=== PATIENT | female | born 1955 | race Caucasian/White ===

== ENCOUNTER 2022-04-08 08:17 | Outpatient (CLI) | payer MEDICARE, SELFPAY ==
[2022-04-08 15:19] LABS: Albumin* 4.9 g/dL (3.3-5.0)
[2022-04-08 15:20] LABS: Chloride* 104 mmol/L (96-114); Potassium* 5.6 mmol/L (3.6-5.1); Sodium* 142 mmol/L (135-149)
[2022-04-08 15:22] LABS: Alkaline Phosphatase* 92 U/L (40-150); Aspartate Amino Transferase* 43 U/L (12-35); Bilirubin Total* 0.5 mg/dL (0.1-1.5); Blood Urea Nitrogen* 28 mg/dL (7-30); Carbon Dioxide* 30 mmol/L (20-32); Cholesterol* 140 mg/dL (90-199); Creatinine* 1.1 mg/dL (0.5-1.5); Estimated Glomerular Filt Rate 56 ml/min; Total Protein* 7.8 g/dL (6.0-8.3)
[2022-04-08 15:23] LABS: Alanine Aminotransferase* 47 U/L (4-35); Calcium* 10.4 mg/dL (8.4-10.6); Glucose* 102 mg/dL (60-115); HDL Cholesterol* 47 mg/dL (>=50); LDL Cholesterol Calculated 61 mg/dL (<100); Triglycerides* 159 mg/dL (40-149)
[2022-04-08 15:54] LABS: Vitamin D 25 Hydroxy* 70 ng/mL (30-80)
== END 2022-04-08 08:18 | disposition home or self-care (01) ==
PROVIDERS: PCP Physician Assistant Medical; Visit Provider Family Medicine
DX: Z00.00 Encounter for general adult medical examination without abnormal findings (principal); E55.9 Vitamin D deficiency, unspecified; E78.1 Pure hyperglyceridemia; E78.5 Hyperlipidemia, unspecified
CPT/HCPCS: 80053; 80061; 82306

== ENCOUNTER 2022-05-11 11:49 | Outpatient (CLI) | payer MEDICARE, SELFPAY | END 2022-05-11 11:50 | disposition home or self-care (01) | LOC: OP CLINIC 11:50 | PROVIDERS: PCP Physician Assistant Medical; Visit Provider Surgery | DX: Z12.11 Encounter for screening for malignant neoplasm of colon (principal) | CPT/HCPCS: 45378; 99153; J2250; J3010 ==

== ENCOUNTER 2022-07-08 14:38 | Outpatient (CLI) | payer MEDICARE, SELFPAY ==
--- NOTE | 2022-07-08 15:00 | CRLHL7_ITS ---
For Patients: As a result of the Century Cures Act, medical imaging exams and procedure reports are released immediately into your electronic medical record. You may view this report before your referring provider. If you have questions, please contact your health care provider. BILATERAL SCREENING MAMMOGRAM WITH COMPUTER-AIDED DETECTION AND TOMOSYNTHESIS TECHNIQUE: CC and MLO views were obtained. These mammographic images have been obtained using full-field digital technique. These mammographic images were interpreted with the benefit of computer-aided detection. Breast Tomosynthesis was used in this interpretation. COMPARISON FILM: None (previous 10+ years). FINDINGS: There are scattered areas of fibroglandular density IMPRESSION: There is no radiographic evidence for malignancy. ASSESSMENT: BI-RADS Category 2: Benign RECOMMENDATION: Routine screening mammogram in 1 year. A lay language report of this examination will be provided to the patient. Francisco Cooley M.D. Diagnostic Radiologist [email or web address] MARITZA/Dictated by: Farncisco Cooley MD @ 07/09/2022 12:39:00 PM (Electronically Signed)
--- NOTE | 2022-07-08 15:30 | CRLHL7_ITS ---
For Patients: As a result of the Century Cures Act, medical imaging exams and procedure reports are released immediately into your electronic medical record. You may view this report before your referring provider. If you have questions, please contact your health care provider. DXA BONE MINERAL DENSITY STUDY Reason for exam: Vitamin d deficiency. Current height (in): 62.0. Weight (lb): 140. Menopause age: 41. Ethnicity: White. 1. Have you had a previous hip or vertebral fracture? No. 2. Have you had any fractures during your adult life which did not result from significant trauma (e.g., auto accident)? No. 3. Did either of your parents have a hip fracture? No. 4. Do you smoke? No. 5. Have you ever taken Glucocorticoids? No. 6. Do you have rheumatoid arthritis? No. 7. Do you have secondary osteoporosis? No. 8. Do you drink 3 or more alcoholic drinks per day? No. 9. Are you being treated for osteoporosis? No. 10. Have you ever taken any of the following medications: Actonel, Evista, Fosamax, Miacalcin, Reclast, Boniva, Forteo, HRT (i.e. estrogen/hormone therapy), Protelos, Prolia, Vitamin D, Calcium, other ??? please specify. ANSWER: Yes, vitamin D, calcium. 11. Do you have any of the following medical conditions: Anorexia or bulimia, asthma or emphysema, end stage renal disease, hyperparathyroidism, any seizure disorders, cancer, inflammatory bowel diseases, hysterectomy, other ??? please specify. ANSWER: Yes, inflammatory bowel diseases, hysterectomy. 12. What was your maximum height (inches)? 62. 13. Do you perform weight bearing exercise regularly? Yes. 14. Do you regularly consume dairy products? No. 15. Do you drink caffeinated beverages? No. If female: 16. At what age did your period start? 14. 17. Are you premenopausal? No. 18. How many full term pregnancies have you had? 2. 19. Have you ever missed your period for more than 6 months in a row (not including or menopause)? No. TECHNIQUE: Bone mineral density study was performed using the [employer]. FINDINGS: The results of the study expressed as bone mineral density (BMD) are as follows: Lumbar spine L1 to L2: BMD: 0.827 g/cm2. T-score: -2.1. Z-score: -0.3. Neck Left: BMD: 0.563 g/cm2. T-score: -2.6. Z-score: -1.0. Right: BMD: 0.623 g/cm2. T-score: -2.0. Z-score: -0.5. Total Left: BMD: 0.776 g/cm2. T-score: -1.4. Z-score: -0.1. Right: BMD: 0.821 g/cm2. T-score: -1.0. Z-score: 0.3. IMPRESSION: Osteoporosis. *Comparison exams done prior to 10/2019 were performed on different unit, [employer]. Francisco Cooley M.D. Diagnostic Radiologist [email or web address] (Electronically Signed)
== END 2022-07-08 14:39 | disposition home or self-care (01) ==
PROVIDERS: PCP Family Medicine; Visit Provider Family Medicine
DX: Z12.31 Encounter for screening mammogram for malignant neoplasm of breast (principal); E55.9 Vitamin D deficiency, unspecified; M81.0 Age-related osteoporosis without current pathological fracture
CPT/HCPCS: 77063; 77067; 77080

== ENCOUNTER 2023-05-04 08:17 | Outpatient (CLI) | payer MEDICARE, SELFPAY | END 2023-05-04 08:18 | disposition home or self-care (01) | PROVIDERS: PCP Family Medicine; Visit Provider Family Medicine | DX: E78.5 Hyperlipidemia, unspecified (principal); E55.9 Vitamin D deficiency, unspecified; M81.0 Age-related osteoporosis without current pathological fracture; M45.7 Ankylosing spondylitis of lumbosacral region; I67.9 Cerebrovascular disease, unspecified; I49.3 Ventricular premature depolarization | CPT/HCPCS: 80053; 80061; 82306 ==

== ENCOUNTER 2023-07-25 14:45 | Outpatient (CLI) | payer MEDICARE, SELFPAY ==
--- NOTE | 2023-07-25 15:00 | MM_ITS ---
Patient: ARY EMERSON Facility:?[facility] Patient ID:?[id number] Site Patient ID:?[id number]. Site :?[id number] Study:?XRay-Breast Bilateral 3D W/CAD-07/25/2023 3:10:24 PM Ordering Physician:Jessica Graves Final Report: BILATERAL SCREENING MAMMOGRAM WITH COMPUTER-AIDED DETECTION AND TOMOSYNTHESIS TECHNIQUE: CC and MLO views were obtained. These mammographic images have been obtained using full-field digital technique. These mammographic images were interpreted with the benefit of computer-aided detection. Breast tomosynthesis was used in this interpretation. COMPARISON FILM: 07/08/22. FINDINGS: The breasts are heterogeneously dense, which may obscure small masses. IMPRESSION: There is no radiographic evidence for malignancy. ASSESSMENT: BI-RADS Category 1: Negative RECOMMENDATION: Routine screening mammogram in 1 year. A lay language report of this examination will be provided to the patient. MAURY CONLEY M.D. Diagnostic Radiologist [email or web address] TIMI/paula D& Transcribed: 6:[address]/Dictated by: Maury Conley MD @ 08/04/2023 12:07:00 PM Signed by:?Maury Conley MD @08/04/2023 8:24:26 PM (Electronic Signature)
== END 2023-07-25 14:46 | disposition home or self-care (01) ==
LOC: MAMMO 14:46
PROVIDERS: PCP Family Medicine; Visit Provider Family Medicine
DX: Z12.31 Encounter for screening mammogram for malignant neoplasm of breast (principal); R92.2 Inconclusive mammogram
CPT/HCPCS: 77063; 77067

== ENCOUNTER 2023-08-29 07:41 | Outpatient (CLI) | payer MEDICARE, SELFPAY ==
--- OUTSIDE RECORDS SUMMARY | 2023-08-29 07:44 | XMS_ITS | Continuity of Care Document ---
Author Name Unknown Organization [facility] Address [address] [place] [address] Phone Care Team Providers Care Freight Delivery Driver Name Role Phone Christian Tse MD Unavailable Unavailable Allergies, Adverse Reactions, Alerts Substance Reaction Status Criticality NITROFURANTOIN MACROCRYSTALLINE difficulty breathing A ctive No Information nitrofurantoin difficulty breathing Active No In formation aspirin difficulty breathing Active No Info rmation Medications Medication Instructions Dosage Effective Dates (start - stop) Status Comments Mobic 15 mg tablet take 1 tablet (15MG) by oral route every day - Active tramadol 50 mg tablet take 1 - 2 Tablet by oral route 3 times every day as needed as needed 50 MG - Active Chronic pain clopidogrel 75 mg tablet take 1 tablet by oral route every day 75 MG - Active amitriptyline 25 mg tablet take 1 tablet by oral route every bedtime 1 tablet - Active atenolol 25 mg tablet take 1 tablet in the am and 1/2 tablet in the PM - Active Mobic 15 mg tablet take 1 tablet (15MG) by oral route every day - No Longer Active Procedures Procedure Date Office/Outpatient Visit, Est Routine Venipuncture Assay Of Serum Albumin Assay Of Creatinine Transferase (Ast) (Sgot) Alanine Amino (Alt) (Sgpt) CReactive Protein Complete Cbc WAuto Diff Wbc Office/Outpatient Visit, Est Routine Venipuncture Complete Cbc WAuto Diff Wbc Assay Of Creatinine Assay Alkaline Phosphatase Transferase (Ast) (Sgot) Alanine Amino (Alt) (Sgpt) Assay Of Urea Nitrogen Assay Of Blood/Uric Acid Office/Outpatient Visit, Est Office/Outpatient Visit, Est Routine Venipuncture Complete Cbc WAuto Diff Wbc CReactive Protein Assay Of Creatinine Assay Alkaline Phosphatase Transferase (Ast) (Sgot) Alanine Amino (Alt) (Sgpt) Assay Of Urea Nitrogen Assay Of Blood/Uric Acid Office/Outpatient Visit, Est Routine Venipuncture Complete Cbc WAuto Diff Wbc Assay Of Creatinine Assay Alkaline Phosphatase Transferase (Ast) (Sgot) Alanine Amino (Alt) (Sgpt) Assay Of Urea Nitrogen Assay Of Blood/Uric Acid Office/Outpatient Visit, Est Routine Venipuncture Complete Cbc WAuto Diff Wbc Assay Of Creatinine Assay Alkaline Phosphatase Transferase (Ast) (Sgot) Alanine Amino (Alt) (Sgpt) Assay Of Urea Nitrogen Assay Of Blood/Uric Acid Drain/Inject, Joint/Bursa Office/Outpatient Visit, Est Betamethasone Acet And Sod Phosp 2013 Surgical Trays Routine Venipuncture Complete Cbc WAuto Diff Wbc Assay Of Creatinine Assay Alkaline Phosphatase Transferase (Ast) (Sgot) Alanine Amino (Alt) (Sgpt) Assay Of Urea Nitrogen Assay Of Blood/Uric Acid Drain/Inject, Joint/Bursa Office/Outpatient Visit, Est Betamethasone Acet And Sod Phosp 2012 Surgical Trays Routine Venipuncture Complete Cbc WAuto Diff Wbc Assay Of Creatinine Assay Alkaline Phosphatase Transferase Ast Sgot Alanine Amino Alt Sgpt Assay Of Urea Nitrogen Assay Of Blood/Uric Acid Advance Directives Directive Yes / No Effective Date File Name No Information Encounters Encounter Description Practice Location Reason(s) For Visit Diagnoses Date Provider Providers Copied on Encounter [facility] , [address], [place], [address], [place] tel:[phone] [facility] , No Information 0 Dedrick Gonzales. [facility] [address], [place], [address], [place]. tel:[phone] [facility] , [address], [place], [address], [place] tel:[phone] [facility] , No Information 0 Dedrick Gonzales. [facility] [address], [place], [address], [place]. tel:[phone] Office/Outpa tient Visit, Est [facility] , [address], [place], [address], [place] tel:[phone] [facility] , Follow Up of Ankylosing Spondylitis (chief complaint) Ankylosing spondylitis of unspecified sites in spineRadial styloid tenosynoviti s [de Quervain]Tro chanteric bursitis, right hipLong term (current) use of non-steroida l non-inflam (NSAID) 7-201 9 Dedrick Gonzales. [facility] [address], [place], [address], [place]. tel:[phone] Referring Provider: Christian Cruz, [facility] [address], [place], [address]. tel:[phone] Office/Outpa tient Visit, Est [facility] , [address], [place], [address], [place] tel:[phone] [facility] , Follow Up of Ankylosing Spondylitis (chief complaint) Body mass index (BMI) 25.0-25.9, adultAnkylos ing spondylitis of unspecified sites in spineLong term (current) use of non-steroida l non-inflam (NSAID)Radia l styloid tenosynoviti s [de Quervain] Dedrick Gonzales. [facility] [address], [place], [address], [place]. tel:[phone] Referring Provider: Christian Cruz, [facility] [address], [place], [address]. tel:[phone] Office/Outpa tient Visit, Est [facility] , [address], [place], [address], [place] tel:[phone] [facility] , Follow Up of Ankylosing Spondylitis (chief complaint) Ankylosing spondylitis in spineLow back painDe Quervain tenosynoviti sLong term (current) use of non-steroida l anti-inflamm atories (NSAID) 7 Dedrick Gonzales. [facility] [address], [place], [address], [place]. tel:[phone] Referring Provider: Christian Cruz, [facility] [address], [place], [address]. tel:[phone] Office/Outpa tient Visit, Est [facility] , [address], [place], [address], [place] tel:[phone] [facility] , Follow Up of Ankylosing Spondylitis (chief complaint) Ankylosing spondylitis in spineDe Quervain tenosynoviti sLong term (current) use of non-steroida l anti-inflamm atories (NSAID) 7 Dedrick Gonzales. [facility] [address], [place], [address], [place]. tel:[phone] Referring Provider: Christian Cruz, [facility] [address], [place], [address]. tel:[phone] Office/Outpa tient Visit, Est [facility] , [address], [place], [address], [place] tel:[phone] [facility] , Follow Up of Ankylosing Spondylitis (chief complaint) Ankylosing spondylitis in spineTrochan teric bursitis of right hipLong term (current) use of non-steroida l anti-inflamm atories (NSAID) 6 Dedrick Gonzales. [facility] [address], [place], [address], [place]. tel:[phone] Referring Provider: Christian Cruz, [facility] [address], [place], [address]. tel:[phone] Office/Outpa tient Visit, Est [facility] , [address], [place], [address], [place] tel:[phone] [facility] , Follow Up of Ankylosing Spondylitis (chief complaint) Ankylosing spondylitisE nthesopathy of hip regionLONG-T ERM (CURRENT) USE OF NON-STEROIDA L ANTI-INFLAMM ATORIES 5 Dedrick Fernandez [facility] [address], [place], [address], [place]. tel:[phone] Referring Provider: Christian Cruz, [facility] [address], [place], [address]. tel:[phone] Office/Outpa tient Visit, Est [facility] , [address], [place], [address], [place] tel:[phone] [facility] , Ankylosing Spondylitis (chief complaint) Ankylosing spondylitisE nthesopathy of hip regionLONG-T ERM (CURRENT) USE OF NON-STEROIDA L ANTI-INFLAMM ATORIES 4 Dedrick Fernandez [facility] [address], [place], [address], [place]. tel:[phone] Referring Provider: Christian Cruz, [facility] [address], [place], [address]. tel:[phone] Office/Outpa tient Visit, Est [facility] , [address], [place], [address], [place] tel:[phone] [facility] , Ankylosing Spondylitis (chief complaint) Ankylosing spondylitisD isorders of bursae and tendons in shoulder region, unspecifiedE nthesopathy of hip regionLONG-T ERM (CURRENT) USE OF NON-STEROIDA L ANTI-INFLAMM ATORIES 3 Dedrick Fernandez [facility] [address], [place], [address], [place]. tel:[phone] Referring Provider: Christian Cruz, [facility] [place] [address], [place], [address]. tel:[phone] Family History Family Member Type Diagnosis Age At Onset Father Problem (finding) rheumatoid arthritis Brother Problem (finding) rheumatoid arthritis Sister Problem (finding) rheumatoid arthritis Payers Payer name Insurance type Covered constitution party ID [employer] [id number] Social History Type Description Quantity Date Captured Comments Alcohol Use Details Unknown Caffeine Use Details Unknown Tobacco Use Status No Information Smoking Status No Information Sex Female Chief Complaint And Reason For Visit No Information Reason For Referral Reason For Referral No Information Plan Of Treatment Date Type Action Status Goal Dietary management education , guidance, and counseling completed Referral Ordered: Physical Therapy (related to Ankylosing spondylitis in spine) ordered Referral Ordered: Physical Therapy (related to Ankylosing spondylitis in spine) ordered Referral Referred To: Physical Therapy Ordered: Referrals: Physical Therapy. Evaluate and treat ordered History Of Present Illness Encounter Date Complaint History Of Prese nt Illness Follow Up of Ankylosing Spondyli tis Follow Up of Ankylosing Spondyli tis Follow Up of Ankylosing Spondyli tis Follow Up of Ankylosing Spondyli tis Follow Up of Ankylosing Spondyli tis Follow Up of Ankylosing Spondyli tis Functional Status Date Functional Assessmen t No Information Instructions Date Instruction Additional Infor mation She will have routin e laboratories today for monitoring medications and disease. Related to senior care (current) use of non-steroidal non-inflam (NSAID) This has not been an issue for her for some time. Related to Trochanteric bursitis, right hip She still has some s ymptoms of right de Quervain's syndrome. These are not nearly as limiting for her now as they were in the past. She will continue as needed use of her wrist splint. Related to Radial styloid tenosynovitis [de Quervain] Her symptoms of anky losing spondylitis are overall stable. I did not recommend any change in her treatment. Related to Ankylosing spondylitis of unspecified sites in spine She will have routin e laboratories today for monitoring medications and disease. Related to terminal gauger (current) use of non-steroidal non-inflam (NSAID) Although she is not completely asymptomatic, she is doing very well with this condition. Her job likely aggravates this to some degree. She will continue to use the splint at night. She will let me know if this worsens again. Related to Radial styloid tenosynovitis [de Quervain] Overall she is doing well with her ankylosing spondylitis. The meloxicam seems to work well for her without obvious side effects. I have a little bit of concern regarding the combination of meloxicam and Plavix. I did not recommend any change in her medications but I will keep an eye on this. Related to Ankylosing spondylitis of unspecified sites in spine Giving encouragement to exercise Related to Body mass index (BMI) 25.0-25.9, adult Dietary management e ducation, guidance, and counseling Related to Body mass index (BMI) 25.0-25.9, adult She's had a very mary beth e improvement in this condition with the hand therapy. She still uses a splint for repetitive activity of the hands. Related to De Quervain tenosynovitis She will require lab oratories for monitoring this the next time I see her. Related to senior care (current) use of non-steroidal anti-inflammatories (NSAID) I'm not actually chandrika e whether her recent flare of low back pain was related to her ankylosing spondylitis or to simple degenerative arthritis. Regardless, she is doing better with that. She will continue home exercises for that. I encouraged her to return to [facility] for their aftercare program if necessary. Related to Low back pain Overall, she is defi nitely doing better today than the last time I saw her. Even though her back is not completely pain-free, she has seen significant improvement in the pain and stiffness there. I did not recommend any change in medications. Related to Ankylosing spondylitis in spine She will have routin e laboratories today for monitoring medications and disease. Related to senior care (current) use of non-steroidal anti-inflammatories (NSAID) She has increased ba ck pain in the upper lumbar spine. I'm not sure whether this is related to active ankylosing spondylitis or to osteoarthritis. Regardless, at least initially, the treatment would be the same. She will continue her same dose of meloxicam. I recommended a trial of physical therapy for the low back. A prescription for that was written. Related to Ankylosing spondylitis in spine I also recommended h and therapy for her de Quervain's tenosynovitis. I'm hoping they will make her a different splint???the splint she is using currently is for carpal tunnel syndrome rather than for de Quervain's syndrome. Related to De Quervain tenosynovitis She will have routin e laboratories for monitoring her medication. Related to senior care (current) use of non-steroidal anti-inflammatories (NSAID) I agree that her sym ptoms and physical findings are stable compared to a year ago. I don't think we need to make any change in her treatment. I will renew her prescription for meloxicam and tramadol. Related to Ankylosing spondylitis in spine She manages this melvin y well with exercises. No additional treatment was recommended. Related to Trochanteric bursitis of right hip She will have routin e laboratories today for monitoring medications and disease. Related to LONG-TERM (CURRENT) USE OF NON-STEROIDAL ANTI-INFLAMMATORIES Although she reports no improvement with the injection done a year ago in her right greater trochanter area, she is not tender there today. 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 I encouraged her to continue the stretches. Related to Enthesopathy of hip region Although she is cert ainly not asymptomatic, she is doing reasonably well with her ankylosing spondylitis. I did not recommend any change in treatment at this time. Related to Ankylosing spondylitis Assessments Type Assessment Date No Information Patient Care Teams Name Effective Dates (start - stop) Status Members No Information
--- OUTSIDE RECORDS SUMMARY | 2023-08-29 07:44 | XMS_ITS | Clinical Summary ---
Author Name Unknown Organization [email or web address] Address [address] [place] [address] Care Team Providers Care Certified Medical Dosimetrist Name Role Phone Needs Pcp, Assignment Primary Care Provider [phone] Source Comments You are receiving this document as you are listed as the primary care provider,follow-up provider, or the patient has been referred to you for consultation.This is in compliance with the Medicare andMedicaid EHR Incentive Program,which states Providers who transition their patient to another setting of careor provider of care or refers their patient to another provider of care shouldprovide summary care record for each transition of care or referral. [email or web address] Allergies Active Allergy Reactions Criticality Noted Date Comments Aspirin Breathing Difficulty High 08/29/2007 Other reaction(s): Dyspnea Nitrofurantoin Breathing Difficulty High 08/29/2007 Other reaction(s): Dyspnea Morphine And Related Breathing Difficulty High 10/31 Medications Medication Sig Dispensed Refills Start Date End Date Status Meloxicam (MOBIC) 15 MG tablet Take 15 mg by mouth daily. Active amitriptyline (ELAVIL) 25 MG tablet Take 25 mg by mouth every evening. Active traMADol (ULTRAM) 50 MG tablet Take 50 mg by mouth every 6 hours as needed for Pain. Active clopidogrel (PLAVIX) 75 MG tablet Take 75 mg by mouth daily. Active cholecalciferol (VITAMIN D3) 125 MCG (5000 UT) Take 5,000 Units by mouth daily. Active atenolol (TENORMIN) 25 MG tabletIndications:Ess ential (primary) hypertension (HRC) TAKE 1 TABLET EVERY MORNING AND 1/2 TABLET IN THE EVENING 135 Tablet 07/28/2021 Active Active Problems Problem Noted Date Diagnosed Date Essential (primary) hypertension 10/31/2017 Secondary pulmonary arterial hypertension 2017 Palpitations 10/31/2017 Vasovagal syncope 10/31/2017 Bradycardia 07/24/2012 Ankylosing spondylitis 06/07/2011 ASD (atrial septal defect), ostium secundum 10/2011 Immunizations Name Administration Dates Next Due Flu Vac (3+ yrs) 02/13/2011 Social History Tobacco Use Types Packs/Day Years Used Date Smoking Tobacco: Never Smokeless Tobacco: Never Sex and Gender Information Value Date Recorded Sex Assigned at Not on file Gender Identity Not on file Sexual Orientation Not on file Last Filed Vital Signs Vital Sign Reading Time Taken Comments Blood Pressure 135/73 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 Pulse 52 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 Temperature - - Respiratory Rate - - Oxygen Saturation - - Inhaled Oxygen Concentration - - Weight 66 kg (145 lb 8 oz) 03/17/2020 3:13 PM CS T Height - - Body Mass Index - - Plan of Treatment Health Maintenance Due Date Last Done Comments Colon Cancer Screening Plan Due 1955 Hep C Screening (Preventive Services) 1955 DTaP/Tdap/Td (1 - Tdap) 12/24/1975 Adult Preventive Visit 06/11/1994 06/11/1993 Mammogram 07/09/1994 07/09/1993 Cholesterol 2001 Zoster/Shingles (1 of 2) 2006 Pneumococcal 65+ Yrs (1 - PCV) 2021 COVID-19 Vaccine (1 - 2022- season) 2022 Influenza (#1) 2022 03/14/2020, 03/03, 02/09/2017, Additional history exists HepA Aged Out No longer eligi ble based on patient's age to complete this topic HepB Aged Out No longer eligi ble based on patient's age to complete this topic Hib Aged Out No longer eligi ble based on patient's age to complete this topic IPV (Polio) Aged Out No longer eligi ble based on patient's age to complete this topic MCV4 Aged Out No longer eligi ble based on patient's age to complete this topic Care Teams Certified Medical Dosimetrist Relationship Specialty Start Date End Date Needs Pcp, Fay WATSON [place], [place] [address] PCP - General 03/17/20
--- OUTSIDE RECORDS SUMMARY | 2023-08-29 07:44 | XMS_ITS | Clinical Summary ---
Author Name Unknown Organization [facility] Address [place], [place] [address] Care Team Providers Care Retail Commission Sales Associate Name Role Phone Earnest Mondragon MD Primary Care Provider Jesus Sebastian MD Unavailable [phone] Allergies Active Allergy Reactions Criticality Noted Date Comments Aspirin Dyspnea 08/29/2007 Nitrofurantoin Dyspnea 08/29/2007 Medications Medication Sig Dispensed Refills Start Date End Date Status TRAMADOL 50 MG TAB take 1 tablet (50 mg) by oral route every 6 hours as needed Active MULTIVITAMIN TAB take 1 tablet by oral route once daily with food Active CALCIUM 600 MG CAP take one tablet by oral route two times daily Active meloxicam (MOBIC) 15 mg tablet Take 1 tablet by mouth once daily. 0 06/10/2011 Active atenolol (TENORMIN) 25 mg tabletIndications:HT N (hypertension) Take 1 tablet in the morning and 1/2 tablet in the evening 135 tablet 08/02/2017 Active Active Problems Problem Noted Date Diagnosed Date Bradycardia 07/24/2012 ASD (atrial septal defect), ostium secundum 02/0 10/2011 Ankylosing spondylitis 06/07/2011 Encounters Date Type Department Care Team Description 08/23/2023 Telephone [employer] [facility] [place] [address] [facility] [address] [place] [address] Oumou Bermudez MD Cardiovascular Diagnostic Testing 08/18/2023 2:00 PM CDT Office Visit [facility] [address] [place] [address] Oumou Bermudez MD Arrived from Last 3 Months Social History Tobacco Use Types Packs/Day Years Used Date Smoking Tobacco: Never Smokeless Tobacco: Never Alcohol Use Standard Drinks/Week Comments No 0 (1 standard drink = 0.6 oz pur e alcohol) Social Connections Answer Date Recorded Frequency of Communication with Friends and Fami ly Not on file 08/18/2023 Sex and Gender Information Value Date Recorded Sex Assigned at Not on file Gender Identity Not on file Sexual Orientation Not on file Obstetrics History Last Filed Vital Signs Vital Sign Reading Time Taken Comments Blood Pressure 140/70 12/29/2015 10:31 AM CDT Pulse 52 12/29/2015 10:31 AM CDT Temperature 36.7 ??C (98.1 ??F) 08/29/2007 9:43 AM CD T Respiratory Rate 16 08/29/2007 11:00 AM CDT Oxygen Saturation 98% 08/29/2007 11:00 AM CDT Inhaled Oxygen Concentration - - Weight 62.6 kg (138 lb) 12/29/2015 10:31 AM CDT Height 157.5 cm (5' 2) 06/07/2011 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 Body Mass Index 25.24 06/07/2011 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 Plan of Treatment Upcoming Encounters Date Type Department Care Team (Late st Contact Info) Description 08/29/2023 8:00 AM CDT Ancillary Procedure [facility] [address] [place] [address] 11/28/2023 8:00 AM CDT Office Visit [facility] [address] [facility] [address] [place] [address] Eliecer Spears MD [address] [place] [address] Health Maintenance Due Date Last Done Comments Tdap 12/24/1967 Depression screening for age 12+ 1968 BMI (ht and wt on same day) for age 18+ 1974 Hepatitis C screening for ag e 18-79 1974 Tetanus booster 1976 Colonoscopy through age 75 2001 Lipids for age 45-75 2001 Mammogram for age 45-75 2001 Zoster (shingles) series for age 50+ (1 of 2) 2006 DEXA/DXA scan for age 65+ 2021 Pneumococcal series for age 65+ (1 of 1 - PCV) 2021 COVID-19 vaccine series (5 - 2022- season) 2022 04/03/2022, 03/13/2021, 06/18/2020, Additional history exists Influenza for age 65+ 01/01/2024 Goals Goal Patient Goal Type Associated Problems Recent Progress Patient-Stated? Author BLOOD PRESSURE-MA INTAINS BP LESS THAN 130/80 Blood Pressure No Jesus Danielson MD Care Teams Retail Commission Sales Associate Relationship Specialty Start Date End Date Earnest Mondragon MD PCP - General 01/10/07 [place] [address] [place] [address] Consulting Physician Cardiovascular Disease 11/07/13
[2023-08-29] MEDS: PERFLUTREN LIPID MICROSPHERES 2 ML VIAL IV (09:27)
== END 2023-08-29 07:42 | disposition home or self-care (01) ==
LOC: RAD 07:42
PROVIDERS: PCP Family Medicine; Visit Provider Internal Medicine
DX: R00.1 Bradycardia, unspecified (principal); I34.0 Nonrheumatic mitral (valve) insufficiency
CPT/HCPCS: 93306; Q9957

== ENCOUNTER 2023-12-06 13:16 | Outpatient (REF) | payer MEDICARE, SELFPAY ==
--- OUTSIDE RECORDS SUMMARY | 2023-12-06 13:26 | XMS_ITS | Clinical Summary ---
Author Organization [facility] Address [place], [place] [address] Care Team Providers Care Market Sales Manager Name Role Phone Earnest Mondragon MD Primary Care Provider Jesus Sebastian MD Unavailable [phone] Allergies Active Allergy Reactions Criticality Noted Date Comments Aspirin Dyspnea 08/29/2007 Nitrofurantoin Dyspnea 08/29/2007 Medications Medication Sig Dispensed Refills Start Date End Date Status TRAMADOL 50 MG TAB take 1 tablet (50 mg) by oral route every 6 hours as needed Active MULTIVITAMIN TAB take 1 tablet by oral route once daily with food Active meloxicam (MOBIC) 15 mg tablet Take 1 tablet by mouth once daily. 0 06/10/2011 Active atenoloL (TENORMIN) 25 mg tabletIndications :HTN (hypertension) Take 1 tablet in the morning 11/28/2023 Active [id number] maldonado oil (Fish OiL) 300-1,000 mg capsule Take 1 Capsule by mouth once daily. 11/28/2023 Active docusate (Colace) 100 mg capsule Take 1 Capsule (100 mg) by mouth two times daily. 11/28/2023 Active clopidogreL (PLAVIX) 75 mg tablet Take 75 mg by mouth once daily. Active atorvastatin (LIPITOR) 20 mg tablet Take 20 mg by mouth at bedtime. 10/31/2023 Active alendronate (FOSAMAX) 70 mg tablet Take 70 mg by mouth once a week in the morning. 10/31/2023 Active cholecalciferol (VITAMIN D3) 5,000 unit capsule Take 5,000 units by mouth once daily. Active CALCIUM 600 MG CAP take one tablet by oral route two times daily 11/28/2023 Discontinued (*Patient states no longer taking) atenolol (TENORMIN) 25 mg tabletIndications :HTN (hypertension) Take 1 tablet in the morning and 1/2 tablet in the evening 135 tablet 08/02/2017 11/28/2023 Discontinued (*Medication adjustment) Active Problems Problem Noted Date Diagnosed Date Bradycardia 07/24/2012 ASD (atrial septal defect), ostium secundum 10/2011 Ankylosing spondylitis 06/07/2011 Encounters Date Type Department Care Team Description 12/01/2023 Telephone [facility] [address] [facility] [address] [place] [id number] Rosalva Haines RN 12/01/2023 Orders Only [facility] [address] [facility] [address] [place] [address] Eliecer Spears MD <No scans attached> 11/29/2023 Telephone [facility] [address] [place] [address] Pao Werner RN Appointment 11/28/2023 8:00 AM CDT Office Visit [facility] [address] [facility] [address] [place] [address] Eliecer Spears MD Consult (ref by jose, tavia, echo 08/28. Pt states feeling crappy, she can feel her PVC's, fatigued, and SOB at times. No current cardiac symptoms but she does feel anxious) 11/28/2023 Travel from Last 3 Months Social History Tobacco [...] Sign Reading Time Taken Comments Blood Pressure 170/78 11/28/2023 8:01 AM CDT Pulse 41 11/28/2023 8:01 AM CDT Temperature 36.7 ??C (98.1 ??F) 08/29/2007 9:43 AM CD T Respiratory Rate 16 08/29/2007 11:00 AM CDT Oxygen Saturation 98% 11/28/2023 8:01 AM CDT Inhaled Oxygen Concentration - - Weight 63 kg (138 lb 14.4 oz) 11/28/2023 8:01 AM CDT Height 157.5 cm (5' 2) 11/28/2023 8:01 AM CDT Body Mass Index 25.41 11/28/2023 8:01 AM CDT Plan of Treatment Upcoming Encounters Date Type Department Care Team (Late st Contact Info) Description 12/13/2023 8:00 AM CDT Appointment [facility] [address] [facility] [address] [place], [place] [address] Eliecer Spears MD [address] [facility] [address] [place], [place] [id number] Health Maintenance Due Date Last Done Comments Tdap 12/24/1967 Depression screening for age 12+ 1968 Hepatitis C screening for ag e 18-79 1974 Tetanus booster 1976 Colonoscopy through age 75 2001 Lipids for age 45-75 2001 Mammogram for age 45-75 2001 Zoster (shingles) series for age 50+ (1 of 2) 2006 DEXA/DXA scan for age 65+ 2021 Pneumococcal series for age 65+ (1 of 1 - PCV) 2021 COVID-19 vaccine series ( season) 2022 04/03/2022, 03/13/2021, 06/18/2020, Additional history exists Influenza for age 65+ 01/01/2024 BMI (ht and wt on same day) for age 18+ 11/27/2024 11/28/2023 Goals Goal Patient Goal Type Associated Problems Recent Progress Patient-Stated? Author BLOOD PRESSURE-MA INTAINS BP LESS THAN 130/80 Blood Pressure No Jesus Danielson MD Procedures Procedure Name Priority Date/Time Associated Diagnosis Comments [facility]NOST[facility] 11/28/2023 9:00 AM CDT EKG 12 LEAD Routine 11/28/2023 7:51 AM CDT Bradycardia from Last 3 Months Results * SC[facility]RESP-DIAGNOSTICS (11/28/2023 9:00 AM CDT) Narrative 11/28/2023 9:00 AM CDT Ordered by an unspecified provider. Other Clinical Staff OTHER * EKG 12 LEAD (11/28/2023 7:51 AM CDT) Interpretation Marked sinus bradycardia Low voltage QRS Septal infarct , age undetermined Abnormal ECG No previous ECGs available Ventricular Rate 41 BPM Atrial Rate 41 BPM P-R Interval 162 ms QRS Duration 78 ms QT 454 ms QTc 374 ms P Fletcher 47 degrees R Fletcher 26 degrees T Fletcher 87 degrees 11/28/2023 7:51 AM CDT 12/05/2023 2:43 PM CDT Eliecer Spears MD EKG ORD from Last 3 Months Care Teams Market Sales Manager Relationship Specialty Start Date End Date Earnest Mondragon MD PCP - General 01/10/07 [place] [address] [place] [address] Consulting Physician Cardiovascular Disease 11/07/13
--- OUTSIDE RECORDS SUMMARY | 2023-12-06 13:26 | XMS_ITS | Clinical Summary ---
Author Organization [email or web address] Address [address], [place] [address] Care Team Providers Care Facilities Maintenance Manager Name Role Phone Needs Pcp, Assignment Primary Care Provider [phone] Source Comments You are receiving this document as you are listed as the primary care provider,follow-up provider, or the patient has been referred to you for consultation.This is in compliance with the Medicare andHol[facility] Health Systemcaid EHR Incentive Program,which states Providers who transition their patient to another setting of careor provider of care or refers their patient to another provider of care shouldprovide summary care record for each transition of care or referral. [facility] Allergies Active Allergy Reactions Criticality Noted Date Comments Aspirin Breathing Difficulty High 08/29/2007 Other reaction(s): Dyspnea Nitrofurantoin Breathing Difficulty High 08/29/2007 Other reaction(s): Dyspnea Morphine And Codeine Breathing Difficulty High 10/31 Medications Medication Sig [...] Comments Blood Pressure 135/73 03/17/2020 3:48 PM TIN RECOVERY WORKER Pulse 52 03/17/2020 3:48 PM TIN RECOVERY WORKER Temperature - - Respiratory Rate - - [...] - PCV) 2021 COVID-19 Vaccine (1 - 2022-24 season) 2022 Influenza (#1) 2024 03/14/2020, 03/03, 02/09/2017, Additional history exists HepA [...] age to complete this topic Care Teams Facilities Maintenance Manager Relationship Specialty Start Date End Date Needs Pcp, Fay [place], [place] [address] PCP - General 03/17/20
--- OUTSIDE RECORDS SUMMARY | 2023-12-06 13:26 | XMS_ITS | Continuity of Care Document ---
Author Organization [facility] Address [address] [place] [address] Phone Care Team Providers Care [employer]age [employer] Operator Name Role Phone Christian Tse MD Unavailable [...] needed 50 MG - Active Chronic pain amitriptyline 25 mg tablet take 1 tablet by oral route every bedtime 1 tablet - Active clopidogrel 75 mg tablet take 1 tablet by oral route every day 75 MG - Active atenolol 25 mg tablet take [...] [facility] , [address], [place], [address], [place] tel:[phone] [facility] , No Information 0 Dedrick Gonzales. [facility] [address], [place], [address], [place]. tel:[phone] [facility] , [address], [place], [address], [place] tel:[phone] [facility] , No Information 0 Dedrick Gonzales. [facility] [address], [place], [address], [place]. tel:[phone] Office/Outpa tient Visit, Est [facility] , [address], [place], [address], [place] tel:[phone] [facility] , Follow Up of Ankylosing Spondylitis (chief complaint) Ankylosing spondylitis of unspecified sites in spineRadial styloid tenosynoviti s [de Quervain]Tro chanteric bursitis, right hipLong term (current) use of non-steroida l non-inflam (NSAID) 7-201 9 Dedrick Fernandez [facility] [address], [place], [address], [place]. tel:[phone] Referring Provider: Christian Cruz, [facility] [address], [place], [address]. tel:[phone] Office/Outpa tient Visit, Est [facility] , [address], [place], [address], [place] tel:[phone] [facility] , Follow Up of Ankylosing Spondylitis (chief complaint) Body mass index (BMI) 25.0-25.9, adultAnkylos ing spondylitis of unspecified sites in spineLong term (current) use of non-steroida l non-inflam (NSAID)Radia l styloid tenosynoviti s [de Quervain] 8 Dedrick Gonzales. [facility] [address], [place], [address], [place]. tel:[phone] Referring Provider: Christian Cruz, [facility] [address], [place], [address]. tel:[phone] Office/Outpa tient Visit, Est [facility] , [address], [place], [address], [place] tel:[phone] [facility] , Follow Up of Ankylosing Spondylitis (chief complaint) Ankylosing spondylitis in spineLow back painDe Quervain tenosynoviti sLong term (current) use of non-steroida l anti-inflamm atories (NSAID) 7 Dedrick Gonzales. [facility] [address], [place], [address], [place]. tel:[phone] Referring Provider: Christian Cruz, [facility] [address], [place], [address]. tel:[phone] Office/Outpa tient Visit, Est [facility] , [address], [place], [address], [place] tel:[phone] [facility] , Follow Up of Ankylosing Spondylitis (chief complaint) Ankylosing spondylitis in spineDe Quervain tenosynoviti sLong term (current) use of non-steroida l anti-inflamm atories (NSAID) 7 Dedrick Gonzales. [facility] [address], [place], [address], [place]. tel:[phone] Referring Provider: Christian Cruz, [facility] [address], [place], [address]. tel:[phone] Office/Outpa tient Visit, Est [facility] , [address], [place], [address], [place] tel:[phone] [facility] , Follow Up of Ankylosing Spondylitis (chief complaint) Ankylosing spondylitis in spineTrochan teric bursitis of right hipLong term (current) use of non-steroida l anti-inflamm atories (NSAID) 6 Dedrick Gonzales. [facility] [address], [place], [address], [place]. tel:[phone] Referring Provider: Christian Cruz, [facility] [address], [place], [address]. tel:[phone] Office/Outpa tient Visit, Est [facility] , [address], [place], [address], [place] tel:[phone] [facility] , Follow Up of Ankylosing Spondylitis (chief complaint) Ankylosing spondylitisE nthesopathy of hip regionLONG-T ERM (CURRENT) USE OF NON-STEROIDA L ANTI-INFLAMM ATORIES 5 Dedrick Fernandez [facility] [address], [place], [address], [place]. tel:[phone] Referring Provider: Christian Cruz, [facility] [address], [place], [address]. tel:[phone] Office/Outpa tient Visit, Est [facility] , [address], [place], [address], [place] tel:[phone] [facility] , Ankylosing Spondylitis (chief complaint) Ankylosing spondylitisE nthesopathy of hip regionLONG-T ERM (CURRENT) USE OF NON-STEROIDA L ANTI-INFLAMM ATORIES 4 Dedrick Fernandez [facility] [address], [place], [address], [place]. tel:[phone] Referring Provider: Christian Cruz, [facility] [address], [place], [address]. tel:[phone] Office/Outpa tient Visit, Est [facility] , [address], [place], [address], [place] tel:[phone] [facility] , Ankylosing Spondylitis (chief complaint) Ankylosing spondylitisD isorders of bursae and tendons in shoulder region, unspecifiedE nthesopathy of hip regionLONG-T ERM (CURRENT) USE OF NON-STEROIDA L ANTI-INFLAMM ATORIES 3 Dedrick Fernandez [facility] [address], [place], [address], [place]. tel:[phone] Referring Provider: Christian Cruz, [facility] [address], [place], [address]. tel:[phone] Family History Family Member Type Diagnosis Age At Onset Father Problem (finding) rheumatoid arthritis Brother Problem (finding) rheumatoid arthritis Sister Problem (finding) rheumatoid arthritis Payers Payer name Insurance type Covered republican ID Sia franco(s) [employer] [id number] Social History Type Description Quantity Date Captured [...] No Information Instructions Date Instruction Additional Infor francisco This has not been an issue for her for some time. Related to Trochanteric bursitis, right hip She will have routin e laboratories today for monitoring medications and disease. 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 I did not recommend any change in her treatment. Related to Ankylosing spondylitis of unspecified sites in spine She still has some s ymptoms of right de Quervain's syndrome. These are not nearly as limiting for her now as they were in the past. She will continue as needed use of her wrist splint. Related to Radial styloid tenosynovitis [de Quervain] She will have routin e laboratories today for monitoring medications and disease. 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 The meloxicam seems to work well for her without obvious side effects. I have a little bit of concern regarding the combination of meloxicam and Plavix. I did not recommend any change in her medications but I will keep an eye on this. Related to Ankylosing spondylitis of unspecified sites in spine Although she is not completely asymptomatic, she is doing very well with this condition. Her job likely aggravates this to some degree. She will continue to use the splint at night. She will let me know if this worsens again. Related to Radial styloid tenosynovitis [de Quervain] Giving encouragement to exercise Related to Body [...] next time I see her. 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 Even though her back is not completely pain-free, she has seen significant improvement in the pain and stiffness there. I did not recommend any change in medications. Related to Ankylosing spondylitis in spine I'm not actually chandrika e whether her recent flare of low back pain was related to her ankylosing spondylitis or to simple degenerative arthritis. Regardless, she is doing better with that. She will continue home exercises for that. I encouraged her to return to [facility] for their aftercare program if necessary. Related to Low back pain She will have routin e laboratories today for monitoring medications and disease. Related to correction (current) use of non-steroidal anti-inflammatories (NSAID) She [...] laboratories for monitoring her medication. Related to correction (current) use of non-steroidal anti-inflammatories (NSAID) I [...] Related to Trochanteric bursitis of right hip Although she reports no improvement with the injection done a year ago in her right greater trochanter area, she is not tender there today. 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 I encouraged her to continue the stretches. Related to Enthesopathy of hip region She will have routin e laboratories today for monitoring medications and disease. Related to LONG-TERM (CURRENT) USE OF NON-STEROIDAL ANTI-INFLAMMATORIES Although she is cert ainly not asymptomatic, she is doing reasonably well with her ankylosing spondylitis. I did not recommend any change in treatment at this time. Related to Ankylosing spondylitis Assessments Type Assessment Date No Information Patient Care Teams Name Effective Dates (start - stop) Status Members No Information
[2023-12-06 14:47] LABS: Basophils Absolute Auto 0.03 K/uL (0.00-0.30); Basophils Percent Auto 0.6 % (0.0-3.0); Eosinophils Absolute Auto 0.13 K/uL (0.00-0.50); Eosinophils Percent Auto 2.7 % (0.0-7.0); Hematocrit 39.6 % (33.0-51.0); Hemoglobin* 12.9 gm/dL (12.0-16.0); Immature Granulocytes Abs Auto 0.03 K/uL (0.00-0.30); Immature Granulocytes Pct Auto 0.6 %; Mean Corpuscular HGB Conc 33 gm/dL (32-36); Mean Corpuscular Hemoglobin 31 pg (26-34); Mean Corpuscular Volume 94 fL (80-100); Monocytes Percent Auto 3.9 % (0.0-11.0); Neutrophils Percent Auto 49.2 % (42.0-72.0); Platelet Count* 201 K/uL (140-440); Red Blood Count 4.23 m/uL (4.00-5.20); White Blood Count* 4.88 K/uL (4.50-11.00)
[2023-12-06 14:48] LABS: Chloride* 106 mmol/L (96-114)
[2023-12-06 14:49] LABS: Potassium* 4.8 mmol/L (3.6-5.1); Sodium* 141 mmol/L (135-149)
[2023-12-06 14:50] LABS: Slide Review Reflex No
[2023-12-06 14:51] LABS: Estimated Glomerular Filt Rate 62 ml/min
[2023-12-06 14:52] LABS: Anion Gap 5 mEq/L (7-15); Blood Urea Nitrogen* 26 mg/dL (7-30); Calcium* 10.5 mg/dL (8.4-10.6); Carbon Dioxide* 30 mmol/L (20-32); Glucose* 131 mg/dL (60-115)
== END 2023-12-06 13:17 | disposition home or self-care (01) ==
LOC: NPINS 13:16
PROVIDERS: PCP Family Medicine; Visit Provider Internal Medicine
DX: R00.1 Bradycardia, unspecified (principal)
CPT/HCPCS: 80048; 85025

== ENCOUNTER 2024-05-24 16:23 | Outpatient (CLI) | payer MEDICARE, SELFPAY | END 2024-05-24 16:24 | disposition home or self-care (01) | PROVIDERS: PCP Family Medicine; Visit Provider Family Medicine | DX: E78.1 Pure hyperglyceridemia (principal); E55.9 Vitamin D deficiency, unspecified; M81.0 Age-related osteoporosis without current pathological fracture; I10 Essential (primary) hypertension; Z11.59 Encounter for screening for other viral diseases | CPT/HCPCS: 80053; 80061; 82043; 82306; 82570; 86803 ==

== ENCOUNTER 2024-08-22 14:38 | Outpatient (CLI) | payer MEDICARE, SELFPAY ==
--- NOTE | 2024-08-22 15:00 | CRLHL7_ITS ---
For Patients: As a result of the Century Cures Act, medical imaging exams and procedure reports are released immediately into your electronic medical record. You may view this report before your referring provider. If you have questions, please contact your health care provider. INDICATION: BILATERAL SCREENING MAMMOGRAM, ASYMPTOMATIC 68 Y/O FEMALE COMPARISON: 07/25/23, 07/08/22 TECHNIQUE: CC and MLO views were obtained. These mammographic images have been obtained using full-field digital technique. These mammographic images were interpreted with the benefit of computer aided detection and tomosynthesis. BREAST COMPOSITION: The breasts are almost entirely fatty. FINDINGS: No suspicious findings. ASSESSMENT: BI-RADS 1 Negative RECOMMENDATION: Annual screening mammogram. A lay language report of this examination will be provided to the patient. Dictated by: Francisco Cooley MD @ 08/23/2024 12:06:45 (Electronically Signed)
--- NOTE | 2024-08-22 15:30 | CRLHL7_ITS ---
For Patients: As a result of the Cures Act, medical imaging exams and procedure reports are released immediately into your electronic medical record. You may view this report before your referring provider. If you have questions, please contact your health care provider. XR DXA Bone Mineral Density (BMD) Reason for exam: Vitamin D deficiency. Current height (inches): 62.0 Weight (lbs.): 125.0 Menopause age: 41 Ethnicity: White 1. Have you had a previous hip or vertebral fracture? No. 2. Have you had any fractures during your adult life which did not result from significant trauma (e.g., auto accident)? No. 3. Did either of your parents have a hip fracture? No. 4. Do you smoke? No. 5. Have you ever taken Glucocorticoids? No. 6. Do you have rheumatoid arthritis? No. 7. 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 8. Do you drink 3 or more alcoholic drinks per day? No. 9. Are you being treated for osteoporosis? Yes. 10. Have you ever taken any of the following medications: Actonel, Evista, Fosamax, Miacalcin, Reclast, Boniva, Forteo, HRT (i.e., estrogen/hormone therapy), Protelos, Prolia, Vitamin D, Calcium, other ??? please specify. ANSWER: Yes; Fosamax, vitamin D, calcium. 11. Do you have any of the following medical conditions: Anorexia or bulimia, asthma or emphysema, end stage renal disease, hyperparathyroidism, any seizure disorders, cancer, inflammatory bowel diseases, hysterectomy, other ??? please specify. ANSWER: Yes; Inflammatory bowel disease, hysterectomy. 12. What was your maximum height (inches)? 62. 13. Do you perform weightbearing exercise regularly? Yes. 14. Do you regularly consume dairy products? No. 15. Do you drink caffeinated beverages? No. 16. At what age did your period start? 14. 17. Are you premenopausal? No. 18. How many full-term pregnancies have you had? 2. 19. Have you ever missed your period for more than 6 months in a row (not including or menopause)? No. TECHNIQUE: Bone mineral density study was performed using the [employer]. FINDINGS: The results of the study expressed as bone mineral density (BMD) are as follows: Lumbar Spine L2 to L3: BMD: 0.846 g/cm2. T-score: -1.9. Z-score: 0.1. Neck Left: BMD: 0.589 g/cm2. T-score: -2.3. Z-score: -0.7. Right: BMD: 0.622 g/cm2. T-score: -2.0. Z-score: -0.4. Total Left: BMD: 0.857 g/cm2. T-score: -0.7. Z-score: 0.7. Right: BMD: 0.874 g/cm2. T-score: -0.6. Z-score: 0.8. IMPRESSION: Osteopenia. COMPARISON: Compared with scan of 07/08/2022, the bone mineral density has increased by 2.4% at the spine and increased by 8.4% at the hip. *Comparison exams done prior to 10/2019 were performed on different unit, [employer]. FRANCISCO CONLEY M.D. Diagnostic Radiologist [email or web address] Transcribed: 4:[address]/Dictated by: Francisco Conley MD @ 08/22/2024 4:36:00 PM (Electronically Signed)
== END 2024-08-22 14:39 | disposition home or self-care (01) ==
LOC: MAMMO 14:39
PROVIDERS: PCP Family Medicine; Visit Provider Family Medicine
DX: Z12.31 Encounter for screening mammogram for malignant neoplasm of breast (principal); E55.9 Vitamin D deficiency, unspecified; M85.89 Other specified disorders of bone density and structure, multiple sites; M81.0 Age-related osteoporosis without current pathological fracture
CPT/HCPCS: 77063; 77067; 77080